=== PATIENT | male | born 1940 | race Two or more races ===

== ENCOUNTER 2020-06-26 11:47 | Emergency (ER) | payer OTHER ==
[~2020-06-26] VITALS: Ht 162.6 cm; Wt 53.1 kg
== END 2020-06-26 14:10 | disposition home or self-care (01) ==
LOC: ER 11:47
DX: L23.81 Allergic contact dermatitis due to animal (cat) (dog) dander (principal)

== ENCOUNTER 2020-07-03 16:16 | Emergency (ER) | payer OTHER ==
[~2020-07-03] VITALS: Ht 162.6 cm; Wt 53.1 kg
[2020-07-03] MEDS ORDERED: RAYOS5 MG (16:22)
[2020-07-03] MEDS ORDERED: CUTIVATE30 GM (16:23)
[2020-07-03] MEDS ORDERED: ALLEGRA ALLERG180 MG (16:23)
[2020-07-03] MEDS ORDERED: GYNE-LOTRIMIN45 GM (16:24)
[2020-07-03] MEDS ORDERED: BENADRYL25 MG PO (18:56)
[2020-07-03] MEDS ORDERED: MEDROLPACK PO ×2 (18:56→19:03)
[2020-07-03] MEDS ORDERED: CETAPHIL226 GM TOP (18:56)
[2020-07-03] MEDS ORDERED: IVERMECTIN3 MG PO (18:56)
[2020-07-03] MEDS ORDERED: NIX59 M1 TOP (19:02)
== END 2020-07-03 19:14 | disposition home or self-care (01) ==
LOC: ER 16:16
DX: R21 Rash and other nonspecific skin eruption (principal); L29.8 Other pruritus

== ENCOUNTER → 2021-02-07 | Outpatient (CLI) | payer OTHER ==
[~2021-02-07] MED LIST: ALLEGRA ALLERG180 MG; BENADRYL25 MG PO; CETAPHIL226 GM TOP; CUTIVATE30 GM; GYNE-LOTRIMIN45 GM; IVERMECTIN3 MG PO; MEDROLPACK PO; NIX59 M1 TOP; RAYOS5 MG
== END | disposition home or self-care (01) ==
LOC: PPH VACUNA 08:06
PROVIDERS: ATTEND Emergency Medicine Pediatric Emergency Medicine
DX: Z23 Encounter for immunization (principal)

== ENCOUNTER 2022-10-26 10:44 | Emergency (ER) | payer OTHER ==
[~2022-10-26] VITALS: Ht 162.6 cm; Wt 49.0 kg
[2022-10-26] MEDS ORDERED: SIMVASTATIN20 MG PO (11:01)
== END 2022-10-26 15:22 | disposition home or self-care (01) ==
LOC: ER 10:44
DX: N50.811 Right testicular pain (principal); E78.00 Pure hypercholesterolemia, unspecified